=== PATIENT | male | born 1980 | race African-American/Black ===

== ENCOUNTER 2019-05-06 06:16 | Day surgery (SDC) | payer OTHER ==
[~2019-05-06] VITALS: Ht 152.4 cm; Wt 27.7 kg
[2019-05-06] MEDS ORDERED: ROCURONIUM BROMIDE 10 MG/ML 5 ML VIAL IVP ONE (06:17)
[2019-05-06] MEDS ORDERED: FentaNYL CITRATE-PF 100 MCG/2 ML VIAL IVP ONE (06:17)
[2019-05-06] MEDS ORDERED: MIDAZOLAM HCL 2 MG/2 ML VIAL IVP ONE (06:17)
[2019-05-06] MEDS ORDERED: GLYCOPYRROLATE 0.2 MG/ML VIAL IM ONE (06:17)
[2019-05-06] MEDS ORDERED: DEXAMETHASONE SOD PHOS 4 MG/ML VIAL IVP ONE (06:17)
[2019-05-06] MEDS ORDERED: PROPOFOL 1% 20 ML VIAL IVP ONE (06:17)
[2019-05-06] MEDS ORDERED: NEOSTIGMINE METHYLSULFATE 1 MG/ML 10 ML VIAL IVP ONE (06:17)
[2019-05-06] MEDS ORDERED: LIDOCAINE/PF 2% 5 ML VIAL IM ONE (06:17)
[2019-05-06] MEDS ORDERED: ONDANSETRON HCL 4 MG/2 ML VIAL IVP ONE (06:17)
[2019-05-06] MEDS ORDERED: RINGERS SOLUTION,LACTATED 1,000 ML IV ONE ×2 (06:30→07:00)
[2019-05-06 07:24] LABS: BASOPHILS % (AUTO) 0.9 % (0.0-2.0); EOSINOPHILS % (AUTO) 1.4 % (1.0-6.0); HEMATOCRIT 44.8 % (41-53); HEMOGLOBIN 14.6 g/dL (13.5-17.5); LYMPHOCYTES # (AUTO) 2.5 K/uL (1.0-4.8); LYMPHOCYTES % (AUTO) 49.9 % (22.0-44.0); MEAN CORPUSCULAR HGB CONC 32.6 G/dL (31.0-37.0); MEAN CORPUSCULAR VOLUME 101 fL (80-100); MONOCYTES # (AUTO) 0.4 K/uL (0.1-1.0); MONOCYTES % (AUTO) 7.4 % (2.0-9.0); NEUTROPHILS % (AUTO) 40.4 % (40.0-70.0); RED BLOOD CELL COUNT(AUTO) 4.43 MIL/uL (4.50-5.90)
[2019-05-06 07:30] LABS: ANION GAP 3 mmol/L (8-16); CALCIUM, TOTAL 9.3 mg/dL (8.8-10.5); CARBON DIOXIDE 32 mmol/L (22-29); CHLORIDE 103 mmol/L (98-107); CREATININE 0.66 mg/dL (0.60-1.30); GLOMERULAR FILTR. RATE CALC > 60 mL/min (>60); GLUCOSE,RANDOM 84 mg/dL (70-110); POTASSIUM 4.3 mmol/L (3.5-5.1); SODIUM SERUM 138 mmol/L (136-145); UREA NITROGEN, BLOOD 9 mg/dL (7-18)
[2019-05-06] MEDS ORDERED: SODIUM CHLORIDE 0.9% 100 ML ONE ×2 (07:31→07:40)
[2019-05-06] MEDS ORDERED: AMPICILLIN SODIUM 1 GM/VIAL ONE (07:31)
[2019-05-06 07:37] LABS: ALANINE AMINOTRANSFERASE 9 U/L (12-78); ALBUMIN 3.4 g/dL (3.4-5.0); ALKALINE PHOSPHATASE 102 U/L (46-116); ASPARTATE AMINOTRANSFERASE 12 U/L (15-37); BILIRUBIN,TOTAL 0.2 mg/dL (0.1-1.0); PROTHROMBIN TIME 10.7 SEC (9.4-11.6); TOTAL PROTEIN, SERUM 7.6 g/dL (6.4-8.2)
[2019-05-06] MEDS ORDERED: BACL10TA PO (07:40)
[2019-05-06] MEDS ORDERED: PANT40TA25 PO (07:40)
[2019-05-06] MEDS ORDERED: LEVE250T55 PO (07:40)
[2019-05-06] MEDS ORDERED: CITA10TA68 PO (07:40)
[2019-05-06] MEDS ORDERED: GABA-531 PO (07:40)
[2019-05-06] MEDS ORDERED: LORA10TA7 PO (07:40)
[2019-05-06] MEDS ORDERED: DSS100 PO (07:40)
[2019-05-06] MEDS ORDERED: DIVA500T52 PO (07:40)
[2019-05-06 07:48] LABS: PLATELET COUNT (AUTO) 143 K/uL (150-450)
[2019-05-06] MEDS ORDERED: HYDROmorphone 2 MG/ML SYRINGE IVP PRN (09:45)
[2019-05-06] MEDS ORDERED: MEPERIDINE-PF 25 MG/ML VIAL IVP PRN (09:45)
[2019-05-06] MEDS ORDERED: FentaNYL CITRATE-PF 100 MCG/2 ML VIAL IVP PRN (09:45)
[2019-05-06] MEDS ORDERED: ALBUTEROL SULFATE 2.5 MG/0.5 ML NEB SOLUTION NEB ONE (10:25)
[2019-05-06] MEDS ORDERED: 0.9% SODIUM CHLORIDE 5 ML NEB SOLUTION NEB ONE ×2 (10:25→10:39)
[2019-05-06] MEDS ORDERED: ALBUTEROL SULFATE 5 MG/ML 20 ML NEB SOLN [BULK] NEB ONE (10:45)
[2019-05-06] MEDS ORDERED: NALOXONE HCL 1 MG/ML 2 ML SYG ONE (14:00)
[2019-05-06] MEDS ORDERED: OXYGEN THERAPY IH SCH (20:00)
== END 2019-05-06 16:05 | disposition home or self-care (01) ==
LOC: SURGERY 06:16
PROVIDERS: ATTEND Dentist General Practice
DX: K02.9 Dental caries, unspecified (principal); K05.6 Periodontal disease, unspecified; K05.30 Chronic periodontitis, unspecified; G82.50 Quadriplegia, unspecified; M81.0 Age-related osteoporosis without current pathological fracture; Z93.1 Gastrostomy status; F17.200 Nicotine dependence, unspecified, uncomplicated; Z79.01 Long term (current) use of anticoagulants; Z79.899 Other long term (current) drug therapy
CPT/HCPCS: 36415; 41899; 71045; 80053; 85025; 85610; 85730; 93005; 94644; J0290; J1100; J2250; J2310; J2405; J2704; J3010; J3490 ×3; J7050; J7120

== ENCOUNTER 2024-08-27 06:44 | Day surgery (SDC) | payer OTHER ==
[~2024-08-27] VITALS: Ht 152.4 cm; Wt 37.2 kg
[~2024-08-27 06:44] MED LIST: BACL10TA PO; CITA10TA99 PO; DIVA-153 PO; DSS100 PO; GABA-1181 PO; LEVE250T81 PO; LORA10TA7 PO; PANT-31 PO
[2024-08-27] MEDS ORDERED: AMPICILLIN SODIUM 2 GM/NS 100 ML IV ONE (07:17)
[2024-08-27 07:50] LABS: BASOPHILS % (AUTO) 1.1 % (0.0-2.0); EOSINOPHILS % (AUTO) 7.3 % (1.0-6.0); HEMOGLOBIN 14.3 g/dL (13.5-17.5); LYMPHOCYTES # (AUTO) 4.4 K/uL (1.0-4.8); LYMPHOCYTES % (AUTO) 37.7 % (22.0-44.0); MEAN CORPUSCULAR HEMOGLOBIN 31.5 pg (26.0-34.0); MEAN CORPUSCULAR HGB CONC 33.3 G/dL (31.0-37.0); MEAN CORPUSCULAR VOLUME 95 fL (80-100); MONOCYTES # (AUTO) 1.4 K/uL (0.1-1.0); MONOCYTES % (AUTO) 11.8 % (2.0-9.0); NEUTROPHILS # (AUTO) 4.9 K/uL (1.8-7.7); NEUTROPHILS % (AUTO) 42.1 % (40.0-70.0); PLATELET COUNT (AUTO) 123 K/uL (150-450); RED BLOOD CELL COUNT(AUTO) 4.54 MIL/uL (4.50-5.90); RED CELL DISTRIBUTION WIDTH 14.4 % (11.5-14.5); WHITE BLOOD COUNT (AUTO) 11.7 K/uL (4.5-11.0)
[2024-08-27 07:52] LABS: ANION GAP 5 mmol/L (8-16); CALCIUM, TOTAL 8.9 mg/dL (8.8-10.5); CARBON DIOXIDE 34 mmol/L (22-29); CHLORIDE 105 mmol/L (98-107); GLOMERULAR FILTR. RATE CALC > 60 mL/min (>60); GLUCOSE,RANDOM 94 mg/dL (70-110); POTASSIUM 4.4 mmol/L (3.5-5.1); SODIUM SERUM 144 mmol/L (136-145); UREA NITROGEN, BLOOD 8 mg/dL (7-18)
[2024-08-27 07:53] LABS: RBC MORPHOLOGY COMMENT NORMAL RBC MORPH
[2024-08-27 07:54] LABS: PROTHROMBIN TIME 11.1 SEC (9.4-11.6)
[2024-08-27 07:58] LABS: ALANINE AMINOTRANSFERASE 8 U/L (12-78); ALBUMIN 2.6 g/dL (3.4-5.0); ALKALINE PHOSPHATASE 146 U/L (46-116); ASPARTATE AMINOTRANSFERASE 19 U/L (15-37); BILIRUBIN,TOTAL 0.2 mg/dL (0.1-1.0); TOTAL PROTEIN, SERUM 7.5 g/dL (6.4-8.2)
[2024-08-27] MEDS ORDERED: RINGERS SOLUTION,LACTATED 1,000 ML IV ONE ×2 (08:17→13:25)
[2024-08-27] MEDS ORDERED: IPRATROPIUM BROMIDE 0.5 MG/2.5 ML NEB SOLUTION NEB ONE ×2 (09:57→11:45)
[2024-08-27] MEDS ORDERED: ALBUTEROL SULFATE 2.5 MG/0.5 ML NEB SOLUTION NEB ONE ×2 (09:58→11:45)
[2024-08-27] MEDS: ALBUTEROL SULFATE 2.5 MG/0.5 ML NEB SOLUTION NEB ONE (10:06)
[2024-08-27] MEDS: IPRATROPIUM BROMIDE 0.5 MG/2.5 ML NEB SOLUTION NEB ONE (10:06)
[2024-08-27] MEDS: RINGERS SOLUTION,LACTATED 1,000 ML IV ONE (11:17)
[2024-08-27] MEDS ORDERED: ONDANSETRON HCL 4 MG/2 ML VIAL IVP ONE (12:00)
[2024-08-27] MEDS ORDERED: DEXAMETHASONE SOD PHOS 4 MG/ML VIAL IVP ONE (12:00)
[2024-08-27] MEDS ORDERED: ALBUTEROL SULFATE HFA 90 MCG/PUFF 8 GM INHALER IH ONE (12:00)
[2024-08-27] MEDS ORDERED: SUGAMMADEX SODIUM 200 MG/2 ML VIAL IVP ONE (12:00)
[2024-08-27] MEDS ORDERED: GLYCOPYRROLATE 0.2 MG/ML VIAL IM ONE (12:00)
[2024-08-27] MEDS ORDERED: ROCURONIUM BROMIDE 10 MG/ML 5 ML VIAL IVP ONE (12:00)
[2024-08-27] MEDS ORDERED: PROPOFOL 1% 20 ML VIAL IVP ONE (12:00)
[2024-08-27] MEDS ORDERED: FentaNYL CITRATE PF 100 MCG/2 ML VIAL IVP PRN (13:00)
[2024-08-27] MEDS: ALBUTEROL SULFATE 2.5 MG/0.5 ML NEB SOLUTION NEB SCH (13:46)
[2024-08-27] MEDS: IPRATROPIUM BROMIDE 0.5 MG/2.5 ML NEB SOLUTION NEB SCH (13:46)
[2024-08-27] MEDS ORDERED: OXYGEN THERAPY IH SCH (20:00)
== END 2024-08-27 15:30 | disposition home or self-care (01) ==
LOC: SURGERY 06:44
PROVIDERS: ATTEND Dentist General Practice
DX: K02.9 Dental caries, unspecified (principal); K03.6 Deposits [accretions] on teeth; K05.30 Chronic periodontitis, unspecified; Z79.01 Long term (current) use of anticoagulants; Z79.899 Other long term (current) drug therapy; J45.909 Unspecified asthma, uncomplicated; K21.9 Gastro-esophageal reflux disease without esophagitis; G82.50 Quadriplegia, unspecified; M81.0 Age-related osteoporosis without current pathological fracture; Z93.1 Gastrostomy status; K59.00 Constipation, unspecified; Z98.890 Other specified postprocedural states; Z86.73 Personal history of transient ischemic attack (TIA), and cerebral infarction without residual deficits
CPT/HCPCS: 41899; 71045; 80053; 85025; 85610; 85730; 36415; 93005; J0290; J2704; J1100; J3490 ×3; J2405; J7120; J3535; J7613; Z7610